=== PATIENT | male | born 1970 | race Caucasian/White ===

== ENCOUNTER → 2021-10-14 | Outpatient (CLI) | payer OTHER ==
[~2021-10-14] MED LIST: DIABETA 5 MG TAB5 MG PO; LISINOPRIL10 MG PO; METFORMIN HCL1000 MG PO
[2021-10-14 18:52] LABS: RED BLOOD COUNT 4.49 M/UL (4.20-5.50); WHITE BLOOD COUNT 9.6 K/UL (4.5-11.0)
[2021-10-14 19:10] LABS: BUN/CREATININE RATIO 14 (0-10)
[2021-10-16 07:12] LABS: TESTOSTERONE, SERUM 497 ng/dL (264-916); VITAMIN D, 25-HYDROXY 37.5 ng/mL (30.0-100.0)
== END ==
LOC: LAB 17:50
PROVIDERS: Nurse Practitioner
DX: R53.83 Other fatigue (principal); E55.9 Vitamin D deficiency, unspecified; G89.29 Other chronic pain; Z79.899 Other long term (current) drug therapy
CPT/HCPCS: 80053; 80061; 82607; 83036; 84403; 84443; 85025; 85652; 86140